=== PATIENT | male | born 1950 | race Native Hawaiian/Other Pacific Islander ===

== ENCOUNTER 2018-09-17 07:23 | Day surgery (SDC) | payer MEDICARE ==
[2018-09-09 17:27] VITALS: BMI 18.3
[2018-09-17] MEDS ORDERED: Propofol 10 mg/ml Inj (20 ML) ONE (09:12)
[2018-09-17] MEDS ORDERED: Sodium Chloride 0.9% 1,000 ML IV SCH (09:30)
[2018-09-17 11:00] VITALS: RESP 16
[2018-09-17 14:14] VITALS: BP 127/76; PULSE 78; TEMP 97.5; O2SAT 100
== END 2018-09-17 13:02 | disposition home or self-care (01) ==
LOC: ENDO 07:23
PROVIDERS: ATTEND Internal Medicine Gastroenterology
DX: K52.9 Noninfective gastroenteritis and colitis, unspecified (principal); K63.3 Ulcer of intestine; K56.699 Other intestinal obstruction unspecified as to partial versus complete obstruction; K64.4 Residual hemorrhoidal skin tags; K64.8 Other hemorrhoids
CPT/HCPCS: 45380; 88305; J2001; J2704; J7030; J7040